=== PATIENT | female | born 1940 | race Caucasian/White ===

== ENCOUNTER → 2018-08-06 | Day surgery (SDC) | payer OTHER ==
--- NOTE | 2018-08-07 15:30 | PATH ---
Cytology Non-Gynecological Report Patient Name: SHAMAR ALCANTAR [facility]. Rec. #: [id number] /Age/Gender: 1940 (Age: 78) / F Account: [id number] Location: RADIOLOGY INTER Taken: 08/06/2018 Received: 08/06/2018 Reported: 08/07/2018 Physicians: Yajaira Rowland M.D. Specimen(s) Received RIGHT THYROID FNA Clinical History Right thyroid lobe, 1.95 x 0.97 x 1.7 cm Final Diagnosis THYROID, RIGHT, FINE NEEDLE ASPIRATION: UNSATISFACTORY FOR EVALUATION. BETHESDA CLASS I: NON-DIAGNOSTIC. RARE SMALL FOLLICULAR CELLS AND SCANT COLLOID PRESENT. Comment: The specimen has insufficient follicular cell clusters and/or colloid; and suboptimal for complete cytopathologic evaluation according to [facility] System for Reporting Thyroid FNA. If the nodule has worrisome ultrasound imaging properties, suggest repeat FNA, as warranted. Electronically Signed Carolina Keys M.D. Gross Description Received are eight direct smears, four of which are air-dried and Diff-Quik stained, and four of which are alcohol fixed and Pap stained. Also received is 20 ml of bloody formalin from which one cellblock is prepared.
== END | disposition home or self-care (01) ==
LOC: JRADIR 09:53 → EDSTATUS 10:00
PROVIDERS: ATTEND Internal Medicine Endocrinology, Diabetes & Metabolism
PROC: 0GBH3ZX Excision of Right Thyroid Gland Lobe, Percutaneous Approach, Diagnostic (ICD-10-PCS; principal; 2018-08-06)
DX: E04.1 Nontoxic single thyroid nodule (principal)
CPT/HCPCS: 76942; 88173; 88305-TC

== ENCOUNTER → 2019-02-25 | Day surgery (SDC) | payer OTHER ==
--- NOTE | 2019-03-01 15:28 | PATH ---
Cytology Non-Gynecological Report Patient Name: SHAMAR ALCANTAR [facility]. Rec. #: [id number] /Age/Gender: 1940 (Age: 78) / F Account: [id number] Location: RADIOLOGY INTER Taken: 02/25/2019 Received: 02/25/2019 Reported: 03/01/2019 Physicians: Julian Gary M.D. Specimen(s) Received RIGHT THYROID FNA Clinical History Right thyroid nodule Final Diagnosis THYROID, RIGHT, FINE NEEDLE ASPIRATION: UNSATISFACTORY FOR EVALUATION BETHESDA CLASS I: CYSTIC THYROID LESION WITH MACROPHAGES. NUMEROUS MACROPHAGES AND RARE FOLLICULAR CELLS PRESENT. SUGGEST CLINICAL CORRELATION. Electronically Signed Stephane Singh M.D. Gross Description Received are eight direct smears, four of which are air-dried and Diff-Quik stained, and four of which are alcohol fixed and Pap stained. Also received is 20 ml of bloody formalin from which one cellblock is prepared.
== END | disposition home or self-care (01) ==
LOC: JRADIR 09:13
PROVIDERS: ATTEND Internal Medicine Endocrinology, Diabetes & Metabolism
PROC: 0G9H3ZX Drainage of Right Thyroid Gland Lobe, Percutaneous Approach, Diagnostic (ICD-10-PCS; principal; 2019-02-25)
DX: E04.1 Nontoxic single thyroid nodule (principal)
CPT/HCPCS: 76942; 88173; 88305-TC